=== PATIENT | female | born 2000 | race African-American/Black ===

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

== ENCOUNTER 2018-12-04 13:52 | Emergency (ER) | payer BC ==
[2018-12-04 14:11] VITALS: BP 110/65
--- NOTE | 2018-12-04 14:25 | UC ---
Skin Complaint HPI - HPI Summary HPI Summary: 18 female who has a sore in her mouth wrist between her right buccal mucosa and her gumline over the past couple days. - History of Current Complaint Chief Complaint: UCSkin Time Seen by Provider: 12/04/18 13:54 Stated Complaint: SORES IN MOUTH Hx Obtained From: Patient Hx Last Menstrual Period: november 16 ?: No Onset/Duration: Gradual Onset Timing: Constant Onset Severity: Mild Current Severity: Mild Pain Intensity: 2 Location: Other - Right upper buccal mucosa Character: Pain Aggravating Factor(s): Nothing Alleviating Factor(s): Nothing Associated Signs & Symptoms: Positive: Negative - Allergy/Home Medications Allergies/Adverse Reactions: Allergies Allergy/AdvReac Type Severity Reaction Status Date / Time No Known Allergies Allergy Verified 12/04/18 14:11 Home Medications: Home Medications Ascorbic Acid TAB* [Vitamin C TAB*] 500 mg PO DAILY 12/04/18 [History Confirmed 12/04/18] PMH/Surg Hx/FS Hx/Imm Hx Previously Healthy: Yes - Surgical History Surgical History: None - Family History Known Family History: Positive: None - Social History Alcohol Use: None Substance Use Type: None Smoking Status (MU): Never Smoked Tobacco Review of Systems All Other Systems Reviewed And Are Negative: Yes Skin: Positive: Other - Ulceration right upper buccal mucosa between the gumline and the buccal mucosa. Is Patient Immunocompromised?: No Physical Exam Triage Information Reviewed: Yes Appearance: Well-Appearing, No Pain Distress, Well-Nourished Vital Signs: Initial Vital Signs Temp 98.7 F 12/04/18 14:04 Pulse 85 12/04/18 14:04 Resp 18 12/04/18 14:04 BP 110/65 12/04/18 14:04 Pulse Ox 100 12/04/18 14:04 Vital Signs Reviewed: Yes Eye Exam: Normal ENT: Positive: Pharynx normal, Uvula midline, Other - Very small aphthous ulcer in the right upper buccal mucosa between the buccal mucosa and the gumline. Neck: Positive: Supple, Nontender, No Lymphadenopathy Skin: Positive: Other - See above notes Course/Dx - Course Course Of Treatment: Patient is comfortable here. She is concerned because she's never had a canker sore before however we discussed the process of healing for that. She's going to do warm salt water swishes 4-6 times a day. She is have a primary care provider and she will follow-up with them on Sunday if no improvement. - Diagnoses Provider Diagnosis: Aphthous ulcer Discharge - Sign-Out/Discharge Documenting (check all that apply): Patient Departure All imaging exams completed and their final reports reviewed: No Studies - Discharge Plan Condition: Fair Disposition: HOME Patient Education Materials: Vikram Holland (ED) Referrals: No Primary Care Phys,NOPCP [Primary Care Provider] - Additional Instructions: Warm saltwater swishes 4-6 times a day. Follow-up with your primary care provider on Sunday if no improvement. - Billing Disposition and Condition Condition: FAIR Disposition: Home
== END 2018-12-04 14:37 | disposition home or self-care (01) ==
LOC: UCCORT 13:52
DX: K12.0 Recurrent oral aphthae (principal)
CPT/HCPCS: 99211; G0463

== ENCOUNTER 2018-12-14 18:49 | Emergency (ER) | payer BC ==
--- NOTE | 2018-12-14 20:39 | UC ---
General HPI - HPI Summary HPI Summary: episodes of dizziness/vertigo. Has had similar episodes for the past several years 2017 labs completed and was not anemic. denies chest pain or pressure sob, nausea, vomiting, head injury, recreational of otc medication use. - History of Current Complaint Chief Complaint: UCGeneralIllness Stated Complaint: DIZZINESS, AND FATIGUE Time Seen by Provider: 12/14/18 20:34 Hx Obtained From: Patient Hx Last Menstrual Period: [id number] Onset/Duration: Sudden Onset, Lasting Minutes, Resolved Timing: Intermittent Episodes Lasting: Pain Intensity: 0 Associated Signs & Symptoms: Positive: Dizziness - Allergy/Home Medications Allergies/Adverse Reactions: Allergies Allergy/AdvReac Type Severity Reaction Status Date / Time No Known Allergies Allergy Verified 12/14/18 19:18 PMH/Surg Hx/FS Hx/Imm Hx Previously Healthy: Yes - Surgical History Surgical History: None - Family History Known Family History: Positive: None - Social History Occupation: Employed Part-time Lives: With Family Alcohol Use: None Substance Use Type: None Smoking Status (MU): Never Smoked Tobacco Review of Systems All Other Systems Reviewed And Are Negative: Yes Constitutional: Positive: Negative Skin: Positive: Negative Eyes: Positive: Negative ENT: Positive: Negative Respiratory: Positive: Negative Cardiovascular: Positive: Negative Gastrointestinal: Positive: Negative Genitourinary: Positive: Negative Motor: Positive: Negative Neurovascular: Positive: Negative Musculoskeletal: Positive: Negative Neurological: Positive: Other - tunnel vision/dizziness sometimes in crowds and sometimes with orthostatics movements Psychological: Positive: Negative Is Patient Immunocompromised?: No Physical Exam Triage Information Reviewed: Yes Appearance: Well-Appearing, No Pain Distress, Well-Nourished Vital Signs: Initial Vital Signs Temp 98.7 F 12/14/18 19:14 Pulse 87 12/14/18 19:14 Resp 16 12/14/18 19:14 BP 113/72 12/14/18 19:14 Pulse Ox 100 12/14/18 19:14 Vital Signs Reviewed: Yes Eye Exam: Normal Eyes: Positive: Conjunctiva Clear ENT Exam: Normal ENT: Positive: Normal ENT inspection, Hearing grossly normal, TMs normal. Negative: Nasal congestion, Trismus, Muffled voice, Hoarse voice, Sinus tenderness Neck exam: Normal Neck: Positive: Supple, Nontender, No Lymphadenopathy Respiratory Exam: Normal Respiratory: Positive: Chest non-tender, Lungs clear, Normal breath sounds, No respiratory distress, No accessory muscle use Cardiovascular Exam: Normal Cardiovascular: Positive: RRR, No Murmur, Pulses Normal, Brisk Capillary Refill Musculoskeletal Exam: Normal Musculoskeletal: Positive: Strength Intact, ROM Intact, No Edema Neurological Exam: Normal Neurological: Positive: Alert, Muscle Tone Normal Psychological Exam: Normal Skin Exam: Normal Course/Dx - Course Course Of Treatment: labs, follow with pcp this week, to ed if symptoms return- - Diagnoses Provider Diagnosis: Vertigo Discharge - Sign-Out/Discharge Documenting (check all that apply): Patient Departure All imaging exams completed and their final reports reviewed: No Studies - Discharge Plan Condition: Stable Disposition: HOME Patient Education Materials: Vertigo (ED), Near Syncope (ED), Dizziness (ED) Referrals: [facility] [Outside] - 2 Days Otoniel Reyes MD [Medical Doctor] - 2 Days Elodia Pool MD [Medical Doctor] - 2 Days - Billing Disposition and Condition Condition: STABLE Disposition: Home
[2018-12-14 20:57] VITALS: BP 132/78
[2018-12-15 13:46] LABS: Hematocrit 35 % (35-47); Hemoglobin 11.6 g/dL (12.0-16.0); Mean Corpuscular HGB Conc 33 g/dL (31-36); Mean Corpuscular Hemoglobin 27 pg (27-31); Mean Corpuscular Volume 83 fL (80-97); Mean Platelet Volume 8.4 fL (7.4-10.4); Platelet Count 221 10^3/uL (150-450); Red Blood Count 4.23 10^6 /uL (3.70-4.87); Red Cell Distribution Width 13 % (10.5-15)
[2018-12-15 14:09] LABS: ABS Eosinophils 0.1 10^3/ul (0-0.6); ABS Lymphocytes 3.1 10^3/ul (1.0-4.8); ABS Monocytes 0.4 10^3/ul (0-0.8); ABS Neutrophils 1.3 10^3/ul (1.5-7.7); Eosinophil % 2.3 %; Lymphocyte % 62.4 %; Nucleated Red Blood Cells % 0.2
[2018-12-15 14:12] LABS: TSH (Thyroid Stimulating Horm) 0.85 mcIU/mL (0.34-5.60)
[2018-12-15 15:16] LABS: Albumin 4.3 g/dL (3.2-5.2); Potassium 3.8 mmol/L (3.5-5.0); Total Bilirubin 0.4 mg/dL (0.2-1.0)
[2018-12-15 15:22] LABS: Albumin/Globulin Ratio 1.7 (1-3); BUN/Creatinine Ratio 14.5 (8-20); EGFR African American 117.4 (>60); Globulin 2.6 g/dL (2-4); Total Protein 6.9 g/dL (6.4-8.9)
== END 2018-12-14 21:20 | disposition home or self-care (01) ==
LOC: UCEAST 18:49
DX: R42 Dizziness and giddiness (principal); R53.83 Other fatigue
CPT/HCPCS: 36415; 80053; 81003; 84443; 84702; 85025; 99212; G0463